=== PATIENT | female | born 1980 | race African-American/Black ===

== ENCOUNTER 2016-10-08 23:14 | Emergency (ER) | payer SELFPAY ==
--- NOTE | 2016-10-09 01:55 | ER Document Report ---
ED GI Bleed / Rectal Pain - General Chief Complaint: Rectal Bleeding Stated Complaint: RECTAL BLEEDING Time seen by provider: 01:53 Mode of Arrival: Ambulatory Information source: Patient TRAVEL OUTSIDE OF THE [place] IN LAST 30 DAYS: No - HPI Patient complains to provider of: Bright red bld from rect., Rectal pain Onset: This afternoon Timing/Duration: Sudden, Persistent Quality of pain: Achy Severity of symptoms: Moderate Pain Level: 3 Rectal bleeding: Bright red blood on paper Associated symptoms: None Exacerbated by: Denies Relieved by: Denies Similar symptoms previously: No Recently seen / treated by doctor: No Notes: Patient is a 36-year-old female presenting to the emergency room complaining of bright red blood per rectum with 2 bowel movements that occurred today, rectal pain, and mild abdominal cramping that occurred just prior to a bowel movement, she denies any vomiting, she does report an episode of loose order he stools, no fever, no urinary symptoms, no history of similar symptoms previously, no trauma - Related Data Allergies/Adverse Reactions: No Known Allergies Allergy (Verified 06/23/13 13:10) Past Medical History - General Information source: Patient - Social History Smoking Status: Never Smoker Family History: Reviewed & Not Pertinent Patient has suicidal ideation: No Patient has homicidal ideation: No - Past Medical History Cardiac Medical History: Denies: Hx Coronary Artery Disease, Hx Heart Attack, Hx Hypertension Pulmonary Medical History: Denies: Hx Asthma, Hx Bronchitis, Hx COPD, Hx Pneumonia Neurological Medical History: Denies: Hx Cerebrovascular Accident, Hx Seizures Musculoskeltal Medical History: Denies Hx Arthritis - Immunizations Hx Diphtheria, Pertussis, Tetanus Vaccination: Yes Review of Systems - Review of Systems Constitutional: No symptoms reported EENT: No symptoms reported Cardiovascular: No symptoms reported Respiratory: No symptoms reported Gastrointestinal: See HPI Genitourinary: No symptoms reported Female Genitourinary: No symptoms reported Musculoskeletal: No symptoms reported Skin: No symptoms reported Hematologic/Lymphatic: No symptoms reported Neurological/Psychological: No symptoms reported -: Yes All other systems reviewed and negative Physical Exam - Vital signs Vitals: Temp Pulse Resp BP Pulse Ox 97.9 F 98 18 140/87 H 99 10/08/16 23:18 10/08/16 23:18 10/08/16 23:18 10/08/16 23:18 10/08/16 23:18 Interpretation: Normal - General General appearance: Appears well, Alert - HEENT Head: Normocephalic, Atraumatic Eyes: Normal Pupils: PERRL - Respiratory Respiratory status: No respiratory distress Chest status: Nontender Breath sounds: Normal Chest palpation: Normal - Cardiovascular Rhythm: Regular Heart sounds: Normal auscultation Murmur: No - Abdominal Inspection: Obese Distension: No distension Bowel sounds: Normal Tenderness: Nontender Organomegaly: No organomegaly - Rectal Tenderness: Yes - mild Stool: No: Bloody Hemorrhoids: Internal - Back Back: Normal, Nontender - Extremities General upper extremity: Normal inspection, Nontender, Normal color, Normal ROM , Normal temperature General lower extremity: Normal inspection, Nontender, Normal color, Normal ROM , Normal temperature, Normal weight bearing. No: Breanne's sign - Neurological Neuro grossly intact: Yes Cognition: Normal Orientation: AAOx4 Dhruv Coma Scale Eye Opening: Spontaneous [place] Coma Scale Verbal: Oriented [place] Coma Scale Motor: Obeys Commands Dhruv Coma Scale Total: 15 Speech: Normal Motor strength normal: LUE, RUE, LLE, RLE Sensory: Normal - Psychological Associated symptoms: Normal affect, Normal mood - Skin Skin Temperature: Warm Skin Moisture: Dry Skin Color: Normal Course - Re-evaluation Re-evalutation: 10/09/16 03:00 Laboratory findings discussed with patient at bedside which are consistent with a urinary tract infection, there is no signs of anemia or blood loss, vital signs are stable, patient will be started on antibiotics and provided with information for follow-up with both primary care provider and a welding robot operator if symptoms continue, patient advised to return if symptoms worsen, patient acknowledges understanding and agreement with this plan - Vital Signs Vital signs: Temp Pulse Resp BP Pulse Ox 97.9 F 98 18 140/87 H 99 10/08/16 23:18 10/08/16 23:18 10/08/16 23:18 10/08/16 23:18 10/08/16 23:18 - Laboratory Result Diagrams: 10/09/16 02:10 10/09/16 02:10 Laboratory results interpreted by me: 10/09/16 10/09/16 02:10 02:10 WBC 12.5 H RBC 5.74 H MCV 78 L MCH 25.9 L RDW 15.6 H Absolute Neutrophils 8.4 H Urine Blood LARGE H Ur Leukocyte Esterase TRACE H Discharge - Discharge Clinical Impression: Rectal bleeding Urinary tract infection Qualifiers: Urinary tract infection type: site unspecified Hematuria presence: with hematuria Qualified Code(s): N39.0 - Urinary tract infection, site not specified ; R31.9 - Hematuria, unspecified Condition: Stable Disposition: HOME, SELF-CARE Instructions: Urinary Tract Infection ([facility]), Rectal Bleeding, Unclear Cause ( [facility]), Hemorrhoids ([facility]), HC Hemorrhoid Cream ([facility]), Gastroenterology, Family Physicians / Practices Additional Instructions: Follow up with your primary care provider and a welding robot operator in one to 2 days. Return to the emergency room immediately if symptoms worsen or any additional concerns. Prescriptions: Ciprofloxacin HCl [Cipro 500 mg Tablet] 500 mg PO BID #20 tablet Hydrocortisone [Anusol-Hc] 30 gm RC TID #1 tub Forms: Return to Work
[2016-10-09 02:28] LABS: ABSOLUTE BASOPHILS # (AUTO) 0.1 10^3/uL (0.0-0.2); ABSOLUTE EOSINOPHILS # (AUTO) 0.1 10^3/uL (0.0-0.6); ABSOLUTE LYMPHOCYTES (AUTO) 3.1 10^3/uL (0.5-4.7); ABSOLUTE MONOCYTES (AUTO) 0.7 10^3/uL (0.1-1.4); ABSOLUTE NEUT (AUTO) 8.4 10^3/uL (1.7-8.2); BASOPHILS % (AUTO) 0.9 % (0-2); EOSINOPHILS % (AUTO) 0.9 % (0-6); HEMATOCRIT 44.6 % (36.0-47.0); HEMOGLOBIN 14.8 g/dL (12.0-15.5); HGB HCT DIFFERENCE -0.2; LYMPHOCYTES % (AUTO) 25.3 % (13-45); MEAN CORPUSCULAR HEMOGLOBIN 25.9 pg (27.0-33.4); MEAN CORPUSCULAR HGB CONC 33.3 g/dL (32.0-36.0); MEAN CORPUSCULAR VOLUME 78 fl (80-97); MONOCYTES % (AUTO) 5.8 % (3-13); RED BLOOD COUNT 5.74 10^6/uL (3.72-5.28); RED CELL DISTRIBUTION WIDTH 15.6 % (11.5-14.0); SEGMENTED NEUTROPHILS % (AUTO) 67.1 % (42-78); WHITE BLOOD COUNT 12.5 10^3/uL (4.0-10.5)
[2016-10-09 02:39] LABS: APPEARANCE,URINE CLOUDY; BILIRUBIN,URINE NEGATIVE (NEGATIVE); GLUCOSE, URINE NEGATIVE (NEGATIVE); KETONES,URINE NEGATIVE (NEGATIVE); LEUKOCYTE ESTERASE,URINE TRACE (NEGATIVE); NITRITE,URINE NEGATIVE (NEGATIVE); PROTEIN,URINE NEGATIVE (NEGATIVE); UROBILINOGEN,URINE NEGATIVE mg/dL (<2.0)
[2016-10-09 02:53] LABS: ALANINE AMINOTRANSFERASE 39 U/L (9-52); ALBUMIN 4.1 g/dL (3.5-5.0); ALKALINE PHOSPHATASE 100 U/L (38-126); ANION GAP 15 (5-19); ASPARTATE AMINO TRANSFERASE 32 U/L (14-36); BILIRUBIN,TOTAL 0.4 mg/dL (0.2-1.3); BLOOD UREA NITROGEN 13 mg/dL (7-20); CALCIUM 9.5 mg/dL (8.4-10.2); CARBON DIOXIDE 26 mmol/L (22-30); CHLORIDE 102 mmol/L (98-107); CREATININE RESULT 0.81 mg/dL (0.52-1.25); GLUCOSE 94 mg/dL (75-110); POTASSIUM 3.8 mmol/L (3.6-5.0); SODIUM 142.5 mmol/L (137-145); TOTAL PROTEIN 7.8 g/dL (6.3-8.2)
[2016-10-09] MEDS ORDERED: CIPROFLOXACIN HCL 500 MG TABLET PO ONE (02:59)
[2016-10-09 03:08] VITALS: BP 121/86
== END 2016-10-09 03:12 | disposition home or self-care (01) ==
LOC: ER 23:14
DX: K62.5 Hemorrhage of anus and rectum (principal); N39.0 Urinary tract infection, site not specified; R31.9 Hematuria, unspecified; K62.89 Other specified diseases of anus and rectum; K64.8 Other hemorrhoids; R10.9 Unspecified abdominal pain
CPT/HCPCS: 36415; 80053; 81001; 85025; 99283

== ENCOUNTER 2018-03-07 22:08 | Emergency (ER) | payer SELFPAY ==
[2018-03-07 22:18] VITALS: BP 131/83
[2018-03-07] MEDS ORDERED: ACETAMINOPHEN 325 MG TABLET PO ONE (23:26)
--- NOTE | 2018-03-07 23:29 | RADIOLOGY REPORT (SQ) ---
EXAM DESCRIPTION: XR ANKLE 2 VIEWS CLINICAL HISTORY: 37 years Female, injury COMPARISON: None. Findings: Small plantar fascial enthesophyte. Bones, joints, and soft tissues of the XR ANKLE 3 VIEWS appear otherwise intact. IMPRESSION: No acute findings.
--- NOTE | 2018-03-07 23:42 | ER Document Report ---
HPI - HPI Pain Level: 4 Context: 87-year-old female resents emergency department the chief complaint of left ankle pain. Patient states that she rolled her ankle while going downstairs earlier this evening. She admits to pain with ambulation and weightbearing but admits to improve pain with elevation and rest. She will take anything prior to arrival. She denies any numbness or tingling distal to her left ankle. Denies any previous injury to this ankle or previous surgeries. - REPRODUCTIVE Reproductive: REPORTS: : - MUSCULOSKELETAL Musculoskeletal: REPORTS: Extremity pain - L ankle Past Medical History - Social History Smoking Status: Unknown if Ever Smoked Family History: Reviewed & Not Pertinent Patient has suicidal ideation: No Patient has homicidal ideation: No - Past Medical History Cardiac Medical History: Denies: Hx Coronary Artery Disease, Hx Heart Attack, Hx Hypertension Pulmonary Medical History: Denies: Hx Asthma, Hx Bronchitis, Hx COPD, Hx Pneumonia Neurological Medical History: Denies: Hx Cerebrovascular Accident, Hx Seizures Renal/ Medical History: Denies: Hx Peritoneal Dialysis Musculoskeltal Medical History: Denies Hx Arthritis - Immunizations Hx Diphtheria, Pertussis, Tetanus Vaccination: Yes Vertical Provider Document - CONSTITUTIONAL Agree With Documented VS: Yes Notes: PHYSICAL EXAM GENERAL: Alert, interacts well. EXTREMITIES: Tenderness over the left lateral malleolus without any evidence of deformity, edema, ecchymosis capillary refill less than 2 seconds in bilateral lower extremity digits calf nontender without any evidence of rigidity no edema, dorsalis pedis pulses 2/4 bilaterally. No cyanosis. NEUROLOGICAL: Alert and oriented x4. Normal speech. PSYCH: Normal affect, normal mood. SKIN: Warm, dry, normal turgor. No rashes or lesions noted. - INFECTION CONTROL TRAVEL OUTSIDE OF THE [place] IN LAST 30 DAYS: No Course - Re-evaluation Re-evalutation: 03/07/18 23:41 Patient is a 37-year-old female who presents with symptoms consistent with an ankle sprain. No evidence of a septic joint, gout flare, dislocation, or fracture on exam and imaging. Vitals wnl. At this time, I do not see an indication for labs or further imaging. Will discharge with conservative measures, return precautions, and follow-up recommendations. - Vital Signs Vital signs: Temp Pulse Resp BP Pulse Ox 98.5 F 78 20 131/83 H 99 03/07/18 22:16 03/07/18 22:16 03/07/18 22:16 03/07/18 22:16 03/07/18 22:16 - Diagnostic Test Radiology reviewed: Image reviewed, Reports reviewed Discharge - Discharge Clinical Impression: Ankle injury Qualifiers: Encounter type: initial encounter Laterality: left Qualified Code(s): S99.912A - Unspecified injury of left ankle, initial encounter Condition: Good Disposition: HOME, SELF-CARE Additional Instructions: You do not have evidence of a fracture on today's xrays. Your pain is likely to do soft tissue swelling and inflammation. This can last up to 6 weeks before completely resolving. You should continue to apply ice to the area regularly, keep the affected area elevated, and take ibuprofen 600mg every 6 hours as needed for pain. Please return if you have worsening pain, weakness, numbness, notice increasing redness or swelling to the area, develop a fever, or have any other symptoms that are concerning to you. Forms: Special Work Note, Return to Work
== END 2018-03-07 23:45 | disposition home or self-care (01) ==
LOC: ER 22:08
DX: O9A.219 Injury, poisoning and certain other consequences of external causes complicating pregnancy, unspecified trimester (principal); S99.912A Unspecified injury of left ankle, initial encounter; X50.0XXA Overexertion from strenuous movement or load, initial encounter; Z3A.00 Weeks of gestation of pregnancy not specified
CPT/HCPCS: 99283

== ENCOUNTER 2020-05-09 15:22 | Emergency (ER) | payer SELFPAY ==
--- NOTE | 2020-05-09 16:33 | ER Document Report ---
ED Medical Screen (RME) - General Chief Complaint: Abdominal Pain Stated Complaint: RIGHT SIDE NECK PAIN Time Seen by Provider: 05/09/20 16:21 TRAVEL OUTSIDE OF THE [place] IN LAST 30 DAYS: No - HPI Notes: 05/09/20 16:30 39-year-old female presents to the emergency room with multiple complaints. Patient reports that she has left lower quadrant abdominal pain that comes and goes intermittently for the last month that radiates to her flank, she has intermittent nausea and. Reports cramping pain. Denies worse with eating. Reports her last bowel movement was yesterday. Denies any surgical history. L ast menstrual cycle was April 16 patient also reports she is having right ear pain that shoots to the bottom of her jaw and up to her head and is causing a headache, which started yesterday. Denies any sore throat or any dental pain. has tried Tylenol and ibuprofen without relief. Denies any chest pain or shortness of breath. Denies any fevers or chills. I have greeted and performed a rapid initial assessment of this patient. A comprehensive ED assessment and evaluation of the patient, analysis of test results and completion of the medical decision making process will be conducted by additional ED providers. PHYSICAL EXAMINATION: GENERAL: Well-appearing, well-nourished and in no acute distress. HEAD: Atraumatic, normocephalic. EYES: Pupils equal round extraocular movements intact, conjunctiva are normal. Right TM without erythema, tenderness to right jaw on palpation. Pharynx without any erythema. Speech clear NECK: Normal range of motion CV: s1, s2 regular LUNGS: No respiratory distress Abdomen; left lower quadrant abdominal tenderness on palpation, no CVA tenderness appreciated bilaterally. - Related Data Allergies/Adverse Reactions: No Known Allergies Allergy (Verified 03/07/18 22:08) Past Medical History - Past Medical History Cardiac Medical History: Denies: Hx Coronary Artery Disease, Hx Heart Attack, Hx Hypertension Pulmonary Medical History: Denies: Hx Asthma, Hx Bronchitis, Hx COPD, Hx Pneumonia Neurological Medical History: Denies: Hx Cerebrovascular Accident, Hx Seizures Renal/ Medical History: Denies: Hx Peritoneal Dialysis Musculoskeltal Medical History: Denies Hx Arthritis - Immunizations Hx Diphtheria, Pertussis, Tetanus Vaccination: Yes Physical Exam - Vital signs Vitals: Temp Pulse Resp BP Pulse Ox 98.7 F 87 16 125/85 99 05/09/20 15:26 05/09/20 15:26 05/09/20 15:26 05/09/20 15:26 05/09/20 15:26 Course - Vital Signs Vital signs: Temp Pulse Resp BP Pulse Ox 98.7 F 87 16 125/85 99 05/09/20 15:26 05/09/20 15:26 05/09/20 15:26 05/09/20 15:26 05/09/20 15:26
[2020-05-09 17:42] LABS: ABSOLUTE BASOPHILS # (AUTO) 0.1 10^3/uL (0.0-0.2); ABSOLUTE EOSINOPHILS # (AUTO) 0.1 10^3/uL (0.0-0.6); ABSOLUTE LYMPHOCYTES (AUTO) 2.7 10^3/uL (0.5-4.7); ABSOLUTE MONOCYTES (AUTO) 0.7 10^3/uL (0.1-1.4); ABSOLUTE NEUT (AUTO) 7.7 10^3/uL (1.7-8.2); BASOPHILS % (AUTO) 0.5 % (0-2); HEMATOCRIT 41.4 % (36.0-47.0); HEMOGLOBIN 13.4 g/dL (12.0-15.5); LYMPHOCYTES % (AUTO) 23.7 % (13-45); MEAN CORPUSCULAR HEMOGLOBIN 25.9 pg (27.0-33.4); MEAN CORPUSCULAR HGB CONC 32.4 g/dL (32.0-36.0); MEAN CORPUSCULAR VOLUME 80 fl (80-97); MONOCYTES % (AUTO) 6.2 % (3-13); PLATELET COUNT 281 10^3/uL (150-450); RED BLOOD COUNT 5.17 10^6/uL (3.72-5.28); RED CELL DISTRIBUTION WIDTH 15.7 % (11.5-14.0); SEGMENTED NEUTROPHILS % (AUTO) 68.6 % (42-78); TOTAL CELLS COUNTED % (AUTO) 100 %; WHITE BLOOD COUNT 11.3 10^3/uL (4.0-10.5)
[2020-05-09 17:46] LABS: APPEARANCE,URINE SLIGHTLY-CLOUDY; BILIRUBIN,URINE NEGATIVE (NEGATIVE); COLOR,URINE YELLOW; GLUCOSE, URINE NEGATIVE (NEGATIVE); KETONES,URINE NEGATIVE (NEGATIVE); LEUKOCYTE ESTERASE,URINE SMALL (NEGATIVE); NITRITE,URINE NEGATIVE (NEGATIVE); PROTEIN,URINE NEGATIVE (NEGATIVE); URINE SPECIFIC GRAVITY 1.021; UROBILINOGEN,URINE NEGATIVE mg/dL (<2.0)
[2020-05-09 18:07] LABS: ALBUMIN 4.2 g/dL (3.5-5.0); ALKALINE PHOSPHATASE 82 U/L (38-126); ASPARTATE AMINO TRANSFERASE 22 U/L (14-36); BILIRUBIN,TOTAL 0.3 mg/dL (0.2-1.3); BLOOD UREA NITROGEN 10 mg/dL (7-20); CALCIUM 8.9 mg/dL (8.4-10.2); GLUCOSE 88 mg/dL (75-110); TOTAL PROTEIN 7.2 g/dL (6.3-8.2)
[2020-05-09 18:12] LABS: ANION GAP 7 (5-19); CARBON DIOXIDE 29 mmol/L (22-30); CHLORIDE 102 mmol/L (98-107)
--- NOTE | 2020-05-09 18:43 | ER Document Report ---
ED General - General Chief Complaint: Abdominal Pain Stated Complaint: RIGHT SIDE NECK PAIN Time Seen by Provider: 05/09/20 16:21 Mode of Arrival: Ambulatory Information source: Patient Notes: 39-year-old woman presents to the emergency department with a history of right ear pain and pain in her right neck. She states the symptoms began last night while she was at work. She denies fever, sore throat, or sinus symptoms. There is no rash or hypersensitivity to touch. She denies a change in her hearing. TRAVEL OUTSIDE OF THE [place] IN LAST 30 DAYS: No - Related Data Allergies/Adverse Reactions: No Known Allergies Allergy (Verified 03/07/18 22:08) Home Medications: BP meds Past Medical History - Social History Smoking Status: Never Smoker Frequency of alcohol use: None Drug Abuse: None Family History: Reviewed & Not Pertinent - Past Medical History Cardiac Medical History: Denies: Hx Coronary Artery Disease, Hx Heart Attack, Hx Hypertension Pulmonary Medical History: Denies: Hx Asthma, Hx Bronchitis, Hx COPD, Hx Pneumonia Neurological Medical History: Denies: Hx Cerebrovascular Accident, Hx Seizures Renal/ Medical History: Denies: Hx Peritoneal Dialysis Musculoskeletal Medical History: Denies Hx Arthritis - Immunizations Hx Diphtheria, Pertussis, Tetanus Vaccination: Yes Review of Systems - Review of Systems Notes: Constitutional: Negative for fever. HENT: + Right ear pain, tenderness right neck/submandibular Eyes: Negative for visual changes. Cardiovascular: Negative for chest pain. Respiratory: Negative for shortness of breath. Gastrointestinal: + Nausea Genitourinary: Negative for dysuria. Musculoskeletal: Negative for back pain. Skin: Negative for rash. Neurological: Negative for headaches, weakness or numbness. 10 point ROS negative except as marked above and in HPI. Physical Exam - Vital signs Vitals: Temp Pulse Resp BP Pulse Ox 98.7 F 87 16 125/85 99 05/09/20 15:26 05/09/20 15:26 05/09/20 15:26 05/09/20 15:26 05/09/20 15:26 - Notes Notes: VITAL SIGNS: Within normal limits. GENERAL: No acute distress, non-toxic appearance. HEAD: Normal with no signs of head trauma. EYES: PERRLA, EOMI, conjunctiva normal, no discharge. EARS: Right TM with erythema, tenderness, tenderness along the EAC right ear. NOSE: Normal. THROAT: Oropharynx is normal. NECK: Normal range of motion, no tenderness, supple, + right submandibular and anterior cervical lymphadenopathy. bilaterally. CHEST: Clear breath sounds bilaterally. No wheezes, rales, or rhonchi. CARDIAC: Regular rate and rhythm. S1 and S2, without murmurs, gallops, or rubs. VASCULAR: No Edema. Peripheral pulses normal and equal in all extremities. ABDOMEN: Normal and soft with no tenderness, no masses or pulsatile masses. GASTROINTESTINAL: Bowel sounds normal GENITOURINARY: Normal, No tenderness LYMPATHTIC: No lymphadenopathy noted. MUSCULOSKELETAL: 1+ edema of the lower extremities NEUROLOGICAL: Alert and oriented x 3. No focal sensory or strength deficits. Speech normal. Follows commands appropriately. PSYCHIATRIC: Normal Affect, judgement and mood. SKIN: Normal appearance with no rashes or lesions. Course - Re-evaluation Re-evalutation: 05/09/20 18:41 Evaluation of 39-year-old woman with right ear infection, lymphadenopathy, will treat with antibiotics and analgesic medications. I am also including a prescription for Zofran for nausea. I have asked the patient to follow-up with her primary care doctor as needed. She acknowledges an understanding of this plan and is in agreement - Vital Signs Vital signs: Temp Pulse Resp BP Pulse Ox 98.7 F 87 16 125/85 99 05/09/20 15:26 05/09/20 15:26 05/09/20 15:26 05/09/20 15:26 05/09/20 15:26 - Laboratory Result Diagrams: 05/09/20 16:39 05/09/20 16:39 Laboratory results interpreted by me: 05/09/20 05/09/20 16:39 16:39 WBC 11.3 H MCH 25.9 L RDW 15.7 H Ur Leukocyte Esterase SMALL H Urine Ascorbic Acid 40 H Discharge - Discharge Clinical Impression: Lymphadenopathy of head and neck, Nausea Right otitis media Qualifiers: Otitis media type: unspecified Qualified Code(s): H66.91 - Otitis media, unspecified, right ear Condition: Good Disposition: HOME, SELF-CARE Instructions: Otitis Media ([facility]), Lymphadenopathy ([facility]) Additional Instructions: You were seen in the emergency department today with right ear pain and pain in the right neck. You are being treated for an infection, prescription is being given for amoxicillin 500 mg 3 times a day and Naprosyn 500 mg twice a day. Because you have had some nausea you are also receiving a prescription for Zofran. I am also providing you with a work note for the next 2 days, if you feel you are ready to return to work before that 2 days or you may return sooner. Please follow-up with your primary care doctor as needed. If your symptoms are worsening or if you have other concerns you may return to the emergency department for further evaluation and treatment HOME CARE INSTRUCTIONS & INFORMATION: Thank you for choosing us for your medical needs. We hope you're satisfied with the care you received. After you leave, you must properly care for your problem and, at the same time, observe its progress. Any condition can change. Some illnesses can change rapidly over hours or days. If your condition worsens, return to the Emergency Department or see your physician promptly. ABOUT YOUR X-RAYS AND EKG'S: If you had an EKG or X-rays taken, they have been read by the Emergency Physician. The X-rays and EKG's will also be read by a R adiologist or Call Center Director within 24 hours. If discrepancies are noted, you will be notified by telephone. Please be certain the ED has a correct telephone number & address where you can be reached. Also, realize that some fractures or abnormalities do not show up on initial X-rays. If your symptoms continue, see your physician. ABOUT YOUR LABORATORY TEST: If you had laboratory tests, the results have been reviewed by the Emergency Physician. Some test results (for example cultures) may not be available for several days. You will be contacted if any test result shows you need additional treatment. Please be certain the ED has a correct telephone number and address where you can be reached. ABOUT YOUR MEDICATIONS: You will receive instructions on how to take your medicine on the prescription label you receive. Additional information may be provided by the Pharmacy. If you have questions afterwards, call the ED for clarification or further instructions. Some prescribed medications may cause drowsiness. Do not perform tasks such as driving a car or operating machinery without consulting your Pharmacist. If you feel you need a refill of pain medication, your condition will need re-evaluation. Please do not call for a refill of any medication. ABOUT YOUR SIGNATURE: Signature of this document acknowledges to followin. Understanding that you received emergency treatment and that you may be released before al medical problems are known or treated. Please be certain the ED has a correct phone number & address where you can be reached. 2. Acknowledgement that you will arrange for follow-up care as recommended. 3. Authorization for the Emergency Physician to provide information to your follow-up Physician in order to maximize your care. AT ANY TIME, IF YOUR SYMPTOMS CHANGE SIGNIFICANTLY OR WORSEN OR YOU DEVELOP NEW SYMPTOMS, RETURN TO THE EMERGENCY DEPARTMENT IMMEDIATELY FOR RE-EVALUATION. OUR GOAL IS TO PROVIDE EXCELLENT MEDICAL CARE! WE HOPE THAT WE HAVE MET YOUR EXPECTATIONS DURING YOUR EMERGENCY DEPARTMENT VISIT AND THAT YOU FEEL YOU HAVE RECEIVED EXCELLENT CARE! Prescriptions: Amoxicillin 1 tab PO TID #30 tab Naproxen [Naprosyn] 500 mg PO BID #20 tablet Ondansetron [Zofran Odt 4 mg Tablet] 1 - 2 tab PO Q4H PRN #15 tab.rapdis PRN Reason: For Nausea/Vomiting Forms: Return to Work
[2020-05-09] MEDS ORDERED: KETOROLAC TROMETHAMINE INJ/PF 30 MG/1 ML SDV IV ONE (18:44)
[2020-05-09 19:05] VITALS: BP 126/63
--- NOTE | 2020-05-09 19:07 | RADIOLOGY REPORT (SQ) ---
EXAM DESCRIPTION: CT ABD/PELVIS WITH IV ONLY IMAGES COMPLETED DATE/TIME: 05/09/2020 6:33 pm REASON FOR STUDY: LLQ rad to flank intermittently x 1m COMPARISON: None. TECHNIQUE: CT scan of the abdomen and pelvis performed using helical scanning technique with dynamic intravenous contrast injection. No oral contrast. Images reviewed with lung, soft tissue, and bone windows. Reconstructed coronal and sagittal MPR images reviewed. Delayed images for evaluation of the urinary system also acquired. All images stored on PACS. All CT scanners at this facility use dose modulation, iterative reconstruction, and/or weight based d osing when appropriate to reduce radiation dose to as low as reasonably achievable (ALARA). [facility]: Dose Right [facility]: CareDose [facility]: Dose Right [facility]: Teradose 4D [facility]: [employer] Labs CONTRAST TYPE AND DOSE: contrast/concentration: Isovue 350.00 mmol/ml; Total Contrast Delivered: 99. 0 ml; Total Saline Delivered: 48.8 ml RENAL FUNCTION: Creatinine - 0.74 BUN = 10 RADIATION DOSE: CT Rad equipment meets quality standard of care and radiation dose reduction techniq ues were employed. CTDIvol: 20.9 - 25.4 mGy. DLP: 2355 mGy-cm.. LIMITATIONS: None. FINDINGS: LOWER CHEST: No significant findings. No nodules or infiltrates. LIVER: Normal size. No masses. No dilated ducts. The hepatic and portal veins are patent. SPLEEN: Small splenule, normal anatomic variant. Normal size. No focal lesions. PANCREAS: No masses. No significant calcifications. No adjacent inflammation or peripancreatic fluid collections. Pancreatic duct not dilated. GALLBLADDER: The gallbladder has a markedly contracted appearance. ADRENAL GLANDS: No significant masses or asymmetry. RIGHT KIDNEY AND URETER: No solid masses. No significant calcifications. No hydronephrosis or hyd roureter. LEFT KIDNEY AND URETER: No solid masses. No significant calcifications. No hydronephrosis or hydr oureter. AORTA AND VESSELS: No aneurysm. No dissection. Renal arteries, SMA, celiac without stenosis. RETROPERITONEUM: No retroperitoneal adenopathy, hemorrhage or masses. BOWEL AND PERITONEAL CAVITY: No masses or inflammatory changes. No free fluid or peritoneal masses. APPENDIX: Normal. PELVIS: The left ovary is prominent in appearance. There are hypoattenuated structures in the left ovary, one of the largest measures 2.1 cm. Considerations for these findings include left ovarian fo llicles and a dominant ovarian follicle. No free fluid. The urinary bladder is incompletely distend ed. ABDOMINAL WALL: Very small fat containing umbilical hernia.BONES: No significant or acute findings. OTHER: No other significant finding. IMPRESSION: 1. Left ovary is prominent in appearance. There are hypoattenuated structures in the l eft ovary may represent ovarian follicles and dominant follicle. Correlation with physically directe d examination and pelvic ultrasound. 2. The gallbladder has a markedly contracted appearance. Evaluation is limited. TECHNICAL DOCUMENTATION: JOB ID: [id number] Quality ID # [id number]: Final reports with documentation of one or more dose reduction techniques (e.g., Au tomated exposure control, adjustment of the mA and/or kV according to patient size, use of iterative reconstruction technique) 2010 [employer]- All Rights Reserved Reading location - IP/workstation name: [email or web address]
== END 2020-05-09 19:05 | disposition home or self-care (01) ==
LOC: ER 15:22
DX: H66.91 Otitis media, unspecified, right ear (principal); R59.0 Localized enlarged lymph nodes; H92.01 Otalgia, right ear; M54.2 Cervicalgia; R11.0 Nausea; R10.32 Left lower quadrant pain; Z79.899 Other long term (current) drug therapy
CPT/HCPCS: 99285; 96374; 36415; 85025; 83690; 81025; 80053; 81001; 74177; J1885